=== PATIENT | female | born 1985 | race Caucasian/White ===

== ENCOUNTER → 2016-04-30 | Outpatient (CLI) | payer OTHER ==
[~2016-04-30] MED LIST: ALBUAER2 INH; CIPR-255 PO; ETONMIS VAGRING; IBUP-103 PO
[2016-04-30 15:59] LABS: THYROID STIMULATING HORMONE 1.27 uIu/ml (0.300-4.500)
== END | disposition home or self-care (01) ==
LOC: C.LAB1850 14:05
PROVIDERS: ATTEND Internal Medicine Endocrinology, Diabetes & Metabolism
DX: E03.9 Hypothyroidism, unspecified (principal)

== ENCOUNTER → 2016-08-31 | Outpatient (CLI) | payer OTHER ==
[~2016-08-31] MED LIST changes: +HYDR25CA PO; +LEVO125T72 PO; +OXYC1TAB3 PO
[2016-08-31 17:21] LABS: THYROID STIMULATING HORMONE 1.61 uIu/ml (0.300-4.500)
== END | disposition home or self-care (01) ==
LOC: C.LAB1850 15:19
PROVIDERS: ATTEND Physician Assistant
DX: E03.9 Hypothyroidism, unspecified (principal)

== ENCOUNTER → 2016-10-28 | Outpatient (CLI) | payer OTHER ==
[~2016-10-28] MED LIST changes: -HYDR25CA PO; -LEVO125T72 PO; -OXYC1TAB3 PO
== END | disposition home or self-care (01) ==
LOC: C.PAPS 09:24
PROVIDERS: ATTEND Obstetrics & Gynecology
DX: Z12.4 Encounter for screening for malignant neoplasm of cervix (principal)

== ENCOUNTER → 2016-11-12 | Outpatient (CLI) | payer OTHER ==
[2016-11-12 13:38] LABS: THYROID STIMULATING HORMONE 1.5 uIu/ml (0.300-4.500)
== END | disposition home or self-care (01) ==
LOC: C.LABPBG 07:21
PROVIDERS: ATTEND Internal Medicine Endocrinology, Diabetes & Metabolism
DX: Z00.00 Encounter for general adult medical examination without abnormal findings (principal); E03.9 Hypothyroidism, unspecified

== ENCOUNTER 2017-02-24 12:10 | Emergency (ER) | payer OTHER ==
[~2017-02-24] VITALS: Ht 162.6 cm; Wt 123.9 kg
[2017-02-24 12:21] VITALS: TEMP 36.7; Ht 162.6 cm; Wt 123.9 kg
[2017-02-24] MEDS ORDERED: HYDROmorphone INJ 1 MG/ML SYR IV ONE ×2 (13:30→16:30)
--- NOTE | 2017-02-24 13:44 | EMERGENCY ROOM VISIT NOTE ---
History First contact with patient: 13:07 Chief Complaint: PELVIC PAIN Stated Complaint: PUBIC/PELVIC PAIN History of Present Illness The patient is a 32 year old female who presents to the Emergency Room with complaints of left flank and left lower quadrant abdominal pain that started at 2 in the morning. The pain is described as a "gnawing sensation." The pain is constant. She has tried Tylenol and ibuprofen with no relief. She denies any urinary symptoms. Her last bowel movement was this morning and reported normal. She has had mild nausea associated with the pain. No vomiting. She denies any fever or chills. The patient has a history of ovarian cysts. She is not sexually active. She denies any vaginal discharge or bleeding. 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 (5) Sprain Rotator Cuff Surgical Problems: (1) [place] teeth extracted PCO S Status post cholecystectomy Family History Cancer Diabetes mellitus Heart disease Hypertension Seizures Social History Smoking Status: Current Every Day Smoker Marital Status: Housing Status: lives with significant other Occupation Status: employed Current/Historical Medications Scheduled Etonogestrel/Ethinyl Estradiol (Nuvaring), 1 EA VAGRING MONTHLY Hydroxyzine Pamoate (Vistaril), 1 CAP PO BID Ibuprofen Tab (Advil), 400 MG PO prn Levothyroxine Sodium (Synthroid), 1 TAB PO DAILY Scheduled PRN Oxycodone Ir (Roxicodone Ir), 1-2 TAB PO Q4H PRN for Pain Physical Exam Vital Signs Date Time Temp Pulse Resp B/P (MAP) Pulse Ox O2 Delivery O2 Flow Rate FiO2 02/24/17 18:15 61 16 130/66 96 02/24/17 16:33 67 16 120/75 97 Room Air 02/24/17 14:45 78 16 98 Room Air 02/24/17 14:18 75 18 127/75 99 Room Air 02/24/17 12:21 36.7 97 20 117/83 97 Room Air Physical Exam VITALS: Vitals are noted on the nurse's note and reviewed by myself. Vital signs stable. GENERAL: 32-year-old female, in no acute distress, nondiaphoretic, well- developed well-nourished. SKIN: The skin was without rashes, erythema, edema, or bruising. HEAD: Normocephalic atraumatic. MOUTH: Mucous membranes moist. NECK: Supple without nuchal rigidity. No lymphadenopathy. Cervical spine is nontender. No JVD. HEART: Regular rate and rhythm without murmurs gallops or rubs. LUNGS: Clear to auscultation bilaterally without wheezes, rales or rhonchi. No accessory muscle use. ABDOMEN: Positive bowel sounds x 4.Soft, mild tenderness to palpation in the left lower quadrant without organomegaly. No guarding or rebound tenderness. No CVA tenderness bilaterally. MUSCULOSKELETAL: No muscle atrophy, erythema, or edema noted. Strength 5/5 throughout. NEURO: Patient was alert and oriented to person place and time. Normal sensation to touch. No focal neurological deficits. Medical Decision & Procedures ER Provider Diagnostic Interpretation: CT abdomen and pelvis without contrast IMPRESSION: 1. Interval cholecystectomy. 2. No acute process of the abdomen or pelvis. 3. Normal appendix. 4. Stable left renal cyst The above report was generated using voice recognition software. It may contain grammatical, syntax or spelling errors. Electronically signed by: Axel Everett M.D. 02/24/2017 5:12 PM Dictated Date/Time: 02/24/2017 5:08 PM The status of this report is Signed. Draft = Not yet reviewed or approved by Radiologist. Signed = Reviewed and approved by Radiologist. <AttendingPhy></AttendingPhy> <FamilyPhy>RV. Holloway MD</ FamilyPhy> <PrimaryPhy>RV. Holloway MD</PrimaryPhy> <UnitNumber> [id number]</UnitNumber> <VisitNumber>[id number]</VisitNumber> <PatientName> YISEL MAURER</PatientName> <DateOfBirth>1985</DateOfBirth> < Location[facility]</Location> <ServiceDate>02/24/17</ServiceDate> <MNE>ESINDI</MNE> <OrderingPhy>Karin Weir PA-C</OrderingPhy> Pelvic ultrasound IMPRESSION: Limited examination secondary to poor sonographic penetration. Grossly normal left ovary without evidence of left ovarian torsion. Nonvisualization of right ovary. Electronically signed by: Az Johns M.D. 02/24/2017 4:03 PM Dictated Date/Time: 02/24/2017 4:00 PM The status of this report is Signed. Draft = Not yet reviewed or approved by Radiologist. Signed = Reviewed and approved by Radiologist. <AttendingPhy></AttendingPhy> <FamilyPhy>RV. Holloway MD</ FamilyPhy> <PrimaryPhy>RV. Holloway MD</PrimaryPhy> <UnitNumber> [id number]</UnitNumber> <VisitNumber>[id number]</VisitNumber> <PatientName> [facility] Enzo</PatientName> <DateOfBirth>1985</DateOfBirth> < Location>[facility]</Location> <ServiceDate>02/24/17</ServiceDate> <MNE>ESINDI</MNE> <OrderingPhy>Pan Hubbard M.D.</OrderingPhy> <OrderingPhyMNE>f rep ord dr cordova< /OrderingPhyMNE> <DictatingPhyMNE>f rep dict dr cordova</DictatingPhyMNE> <CCListMNE >f rep ct mne</CCListMNE> <AdmittingPhyMNE>f pt admit dr cordova</AdmittingPhyMNE> < AttendingPhyMNE KUB IMPRESSION: 1. No radiographic evidence of renal calculi. However, calcification in the left hemipelvis is noted. Distal left ureteral calculus cannot be excluded as no pelvic phlebolith is noted on prior CT from 2015. If there is clinical concern, further evaluation with noncontrast CT could be obtained. Electronically signed by: Az Johns M.D. 02/24/2017 2:50 PM Dictated Date/Time: 02/24/2017 2:33 PM The status of this report is Signed. Draft = Not yet reviewed or approved by Radiologist. Signed = Reviewed and approved by Radiologist. <AttendingPhy></AttendingPhy> <FamilyPhy>RV. Holloway MD</ FamilyPhy> <PrimaryPhy>RV. Holloway MD</PrimaryPhy> <UnitNumber> [id number]</UnitNumber> <VisitNumber>[id number]</VisitNumber> <PatientName> YISEL MAURER</PatientName> <DateOfBirth>1985</DateOfBirth> < Location>[facility]</Location> <ServiceDate>02/24/17</ServiceDate> <MNE>ESINDI</MNE> <OrderingPhy>Karin Weir PA-C</OrderingPhy> <OrderingPhyMNE>f rep ord dr cordova </OrderingPhyMNE> <DictatingPhyMNE>f rep dict dr cordova</DictatingPhyMNE> < CCListMNE>f rep ct mne</CCListMNE> <AdmittingPhyMNE>f pt admit dr cordova</ AdmittingPhyMNE> <AttendingPhyMNE>f pt attend dr cordova</AttendingPhyMNE> <ConsultingPhyMNE>f pt consult dr cordova</ConsultingPhyMNE> <FamilyPhyMNE>f pt fam dr cordova</FamilyPhyMNE> <OtherPhyMNE>f pt other dr cordova</OtherPhyMNE> < PrimaryPhyMNE>f pt prim care dr cordova</PrimaryPhyMNE> <ReferringPhyMNE>f pt referring dr cordova</ReferringPhyMNE> Laboratory Results 02/24/17 13:50 Red Blood Count 5.23, Mean Corpuscular Volume 79.7, Mean Corpuscular Hemoglobin 26.8, Mean Corpuscular Hemoglobin Concent 33.6, Mean Platelet Volume 8.6, Neutrophils (%) (Auto) 62.0, Lymphocytes (%) (Auto) 29.7, Monocytes (%) (Auto) 4.9, Eosinophils (%) (Auto) 2.8, Basophils (%) (Auto) 0.4, Neutrophils # (Auto) 7.41, Lymphocytes # (Auto) 3.55, Monocytes # (Auto) 0.58, Eosinophils # (Auto) 0.34, Basophils # (Auto) 0.05 02/24/17 13:50 Test 02/24/17 12:55 02/24/17 13:50 Urine Color YELLOW Urine Appearance CLEAR (CLEAR) Urine pH 5.0 (4.5-7.5) Urine Specific Thurmond 1.028 (1.000-1.030) Urine Protein NEG (NEG) Urine Glucose (UA) NEG (NEG) Urine Ketones NEG (NEG) Urine Occult Blood 3+ (NEG) Urine Nitrite NEG (NEG) Urine Bilirubin NEG (NEG) Urine Urobilinogen NEG (NEG) Urine Leukocyte Esterase NEG (NEG) Urine WBC (Auto) 1-5 /hpf (0-5) Urine RBC (Auto) >30 /hpf (0-4) Urine Hyaline Casts (Auto) 1-5 /lpf (0-5) Urine Epithelial Cells (Auto) 20-30 /lpf (0-5) Urine Bacteria (Auto) NEG (NEG) Urine Test NEG (NEG) White Blood Count 11.95 K/uL (4.8-10.8) Red Blood Count 5.23 M/uL (4.2-5.4) Hemoglobin 14.0 g/dL (12.0-16.0) Hematocrit 41.7 % (37-47) Mean Corpuscular Volume 79.7 fL (80-100) Mean Corpuscular Hemoglobin 26.8 pg (25-34) Mean Corpuscular Hemoglobin Concent 33.6 g/dl (32-36) Platelet Count 296 K/uL (130-400) Mean Platelet Volume 8.6 fL (7.4-10.4) Neutrophils (%) (Auto) 62.0 % Lymphocytes (%) (Auto) 29.7 % Monocytes (%) (Auto) 4.9 % Eosinophils (%) (Auto) 2.8 % Basophils (%) (Auto) 0.4 % Neutrophils # (Auto) 7.41 K/uL (1.4-6.5) Lymphocytes # (Auto) 3.55 K/uL (1.2-3.4) Monocytes # (Auto) 0.58 K/uL (0.11-0.59) Eosinophils # (Auto) 0.34 K/uL (0-0.5) Basophils # (Auto) 0.05 K/uL (0-0.2) RDW Standard Deviation 38.3 fL (36.4-46.3) RDW Coefficient of Variation 13.2 % (11.5-14.5) Immature Granulocyte % (Auto) 0.2 % Immature Granulocyte # (Auto) 0.02 K/uL (0.00-0.02) Anion Gap 3.0 mmol/L (3-11) Est Creatinine Clear Calc Drug Dose 162.6 ml/min Estimated GFR () 135.9 Estimated GFR (Non- 117.2 BUN/Creatinine Ratio 13.0 (10-20) Calcium Level 8.9 mg/dl (8.5-10.1) Total Bilirubin 0.2 mg/dl (0.2-1) Aspartate Amino Transf (AST/SGOT) 10 U/L (15-37) Alanine Aminotransferase (ALT/SGPT) 18 U/L (12-78) Alkaline Phosphatase 61 U/L (45-117) Total Protein 7.8 gm/dl (6.4-8.2) Albumin 3.2 gm/dl (3.4-5.0) Globulin 4.6 gm/dl (2.5-4.0) Albumin/Globulin Ratio 0.7 (0.9-2) Medications Administered Medications (Trade) Dose Ordered Sig/Nicanor Route Start Time Stop Time Status Last Admin Dose Admin Hydromorphone HCl (Dilaudid Inj) 1 mg ONE ONCE IV 02/24/17 13:30 02/24/17 13:31 DC 02/24/17 14:13 1 MG Hydromorphone HCl (Dilaudid Inj) 1 mg ONE ONCE IV 02/24/17 16:30 02/24/17 16:31 DC 02/24/17 16:32 1 MG Ketorolac Tromethamine (Toradol Inj) 30 mg NOW STAT IV 02/24/17 16:22 02/24/17 16:23 DC 02/24/17 16:32 30 MG Oxycodone HCl (Roxicodone Immediate Rel 5MG Home Pack) 1 homepack UD ONCE PO 02/24/17 17:45 02/24/17 17:46 DC 02/24/17 18:06 1 HOMEPACK ED Course Patient was seen and examined Vital signs including blood pressure were reviewed medications list was verified with patient Labs were obtained, and a saline lock was established The patient was medicated with Dilaudid. Imaging was performed and reviewed The patient was reassessed. Her pain was worse after the ultrasound. She was given an additional dose of Dilaudid. CT was performed and reviewed. The findings were discussed with the patient who is resting comfortably in bed. We discussed the results of her workup. She voiced understanding. The case was also discussed with my supervising physician She was given a home pack of oxycodone. I reviewed discharge instructions the patient. They voiced understanding and had no further questions. Medical Decision DIFFERENTIAL DIAGNOSIS: Gastroenteritis, Hepatitis, cholecystitis, cholangitis, biliary colic, pancreatitis, appendicitis, inguinal hernia, nephrolithiasis, inflammatory bowel disease, mesenteric adenitis, peptic ulcer disease, GERD, gastritis, pancreatitis,, bowel obstruction, splenic infarct, diverticulitis, mesenteric ischemia, metabolic, peritonitis, ovarian cyst, ovarian torsion, ectopic , PID, endometriosis, uterine fibroids This patient is a 32-year-old female that presents to emergency department with complaints of left flank pain and left lower abdominal pain. On exam, she was nontoxic in appearance. She did not have any significant CVA tenderness. She was minimally tender in the left lower quadrant. I ordered an ultrasound, which did not show any ovarian cysts. I reviewed her labs. She had 3+ blood in her urine. I ordered a CT to evaluate her for a kidney stone. This was also negative. Her renal function is intact. There is no significant leukocytosis. The etiology of her pain is unclear. I feel that she is stable to be discharged home with close follow-up. She was given a short course of narcotic pain medication. 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 She agrees to return to the emergency department with any new or concerning symptoms. This chart was completed in part utilizing [employer] Speech Voice Recognition software. Attempts were made to minimize the grammatical errors, random word insertions, pronoun errors and incomplete sentences. Any formal questions or concerns about the content, text or information contained within the body of this dictation should be directly addressed to the provider for clarification. Medication Reconcilliation Current Medication List: was personally reviewed by me Blood Pressure Screening Patient's blood pressure: Normal blood pressure Impression Primary Impression: Abdominal pain Departure Information Dispostion Home / Self-Care Condition GOOD Prescriptions Oxycodone Ir (Roxicodone Ir) 5 Mg Tab 1-2 TAB PO Q4H Y for Pain, #15 TAB For Initial Treatment Prov: Karin Weir PA-C 02/24/17 Referrals RV. Holloway MD (PCP) Patient Instructions My [facility] Additional Instructions You were evaluated in the emergency department for abdominal pain and flank pain. Ibuprofen 800 mg and/or Tylenol 1000 mg every 8 hours. You may also alternate these medications for more effective pain relief: Ibuprofen --4 HRS--> Tylenol --4 HRS--> ibuprofen --4 HRS--> Tylenol .... Oxycodone for severe pain Oxycodone Immediate Release (OxyIR) 5mg: Take 1-2 pills every four hours for pain. Avoid alcohol, operating machinery or dangerous equipment, working on ladders or roofs, DRIVING, or situations where being under the influence may be dangerous. It is recommended to use an [id number] stool softener such as Colace, 100mg twice daily while taking this medication to avoid constipation. Please follow-up with your primary care physician within the next 48 hours for recheck Return to the emergency department if you have any of the following symptoms: -Fever of 103F or greater -Persistent vomiting - Persistent diarrhea -Lethargy -Chest pain -Shortness of breath -Worsening pain
[2017-02-24 13:50] LABS: URINE APPEARANCE CLEAR (CLEAR); URINE BILIRUBIN NEG (NEG); URINE COLOR YELLOW; URINE EPITHELIAL CELL AUTO 20-30 /lpf (0-5); URINE NITRITE NEG (NEG); URINE SPECIFIC GRAVITY 1.028 (1.000-1.030); UROBILINOGEN NEG (NEG)
[2017-02-24 13:51] LABS: MANUAL MICROSCOPIC REQUIRED? NO; REVIEW REQ? NO
[2017-02-24 13:56] LABS: PREG INTERNAL NEGATIVE QC NEG CLEAR BACKGROUND; PREG INTERNAL POSITIVE QC POS CONTROL LINE
[2017-02-24] MEDS ORDERED: HYDR25CA PO (14:04)
[2017-02-24] MEDS ORDERED: LEVO125T72 PO (14:04)
[2017-02-24 14:08] LABS: BASO % 0.4 %; BASO ABS # 0.05 K/uL (0-0.2); COMPLETE YES; EOS % 2.8 %; HEMATOCRIT 41.7 % (37-47); IG% 0.2 %; LYMPH % 29.7 %; LYMPH ABS # 3.55 K/uL (1.2-3.4); MEAN CELL VOLUME 79.7 fL (80-100); MEAN CORPUSCULAR HEMOGLOBIN 26.8 pg (25-34); MEAN CORPUSCULAR HGB CONC 33.6 g/dl (32-36); MEAN PLATELET VOLUME 8.6 fL (7.4-10.4); MONO % 4.9 %; PLATELET COUNT 296 K/uL (130-400); RED BLOOD COUNT 5.23 M/uL (4.2-5.4); WHITE BLOOD COUNT 11.95 K/uL (4.8-10.8)
[2017-02-24 14:26] LABS: CALCIUM 8.9 mg/dl (8.5-10.1); CREATININE 0.64 mg/dl (0.60-1.20); POTASSIUM 3.5 mmol/L (3.5-5.1)
[2017-02-24 14:28] LABS: ALB/GLOB RATIO 0.7 (0.9-2)
--- NOTE | 2017-02-24 14:51 | DIAGNOSTIC IMAGING REPORT ---
KUB CLINICAL HISTORY: 32 years-old Female presenting with L flank pain LLQ pain ? stone, pelvic pain. TECHNIQUE: Single supine view of the abdomen was obtained. COMPARISON: CT from 2015. FINDINGS: Cholecystectomy clips. Single pelvic surgical clip also noted. No gross pneumoperitoneum. Nonobstructive bowel gas pattern. No calcifications to suggest nephrolithiasis. Calcification in the left hemipelvis may represent a phlebolith though no phlebolith was noted in 2015. Osseous structures normal. Lung bases clear. IMPRESSION: 1. No radiographic evidence of renal calculi. However, calcification in the left hemipelvis is noted. Distal left ureteral calculus cannot be excluded as no pelvic phlebolith is noted on prior CT from 2015. If there is clinical concern, further evaluation with noncontrast CT could be obtained. Electronically signed by: Az Johns M.D. 02/24/2017 2:50 PM Dictated Date/Time: 02/24/2017 2:33 PM
--- NOTE | 2017-02-24 16:04 | DIAGNOSTIC IMAGING REPORT ---
TRANSVAG-FEMALE PELVIS, PELVIC COMPLETE NON OB CLINICAL HISTORY: 32 years-old Female presenting with LLQ pain, last menstrual period 02/10/2017. TECHNIQUE: Real-time grayscale and color and spectral Doppler ultrasound imaging of the pelvis was performed first using a transabdominal probe and subsequently transvaginal for better characterization. COMPARISON: CT from 03/08/2015. FINDINGS: The examination was limited by patient body habitus. Uterus: Normal. Anteverted. The uterus measures 6.5 x 2.6 x 3.5 cm. Endometrial stripe measures 6 mm in thickness. Endometrium normal-appearing. Cervix contains nabothian cysts. Right adnexa: Right ovary not visualized. Left adnexa: Left ovary grossly normal but poorly visualized. Left ovary measures 1.9 x 1.9 x 1.0 cm. Normal arterial and venous waveforms within the ovarian parenchyma. Other: No free fluid. IMPRESSION: Limited examination secondary to poor sonographic penetration. Grossly normal left ovary without evidence of left ovarian torsion. Nonvisualization of right ovary. Electronically signed by: Az Johns M.D. 02/24/2017 4:03 PM Dictated Date/Time: 02/24/2017 4:00 PM
[2017-02-24] MEDS ORDERED: KETOROLAC TROMETHAMINE 30 MG/ML VIAL IV STA (16:22)
--- NOTE | 2017-02-24 17:13 | DIAGNOSTIC IMAGING REPORT ---
ABD/PELVIS WITHOUT FOR STONE CT DOSE: 1701.36 mGy.cm HISTORY: Flank pain LLQ flank pain ? stone also hx diverticula TECHNIQUE: Multiaxial CT images of the abdomen and pelvis were performed without the use of intravenous and oral contrast according to the standard department stone protocol. A dose lowering technique was utilized adhering to the principles of ALARA. COMPARISON STUDY: 03/08/2015 FINDINGS: Lung bases are clear. Interval cholecystectomy. Liver spleen and pancreas appear unremarkable. Left renal cyst unchanged in the prior exam. Kidneys are considered negative for an obstructing urinary tract calculus. Uterus is anteflexed. Bowel pattern is nonobstructive. No evidence for diverticulitis. The appendix is normal. IMPRESSION: 1. Interval cholecystectomy. 2. No acute process of the abdomen or pelvis. 3. Normal appendix. 4. Stable left renal cyst The above report was generated using voice recognition software. It may contain grammatical, syntax or spelling errors. Electronically signed by: Axel Everett M.D. 02/24/2017 5:12 PM Dictated Date/Time: 02/24/2017 5:08 PM
[2017-02-24] MEDS ORDERED: OXYC1TAB3 PO (17:39)
[2017-02-24] MEDS ORDERED: OXYCODONE IR HOME PACK PO ONE (17:45)
[2017-02-24 18:15] VITALS: BP 130/66; PULSE 61; O2SAT 96
== END 2017-02-24 18:12 | disposition home or self-care (01) ==
LOC: C.EDB 12:12
DX: R10.32 Left lower quadrant pain (principal); K21.9 Gastro-esophageal reflux disease without esophagitis; Z90.49 Acquired absence of other specified parts of digestive tract; Z80.9 Family history of malignant neoplasm, unspecified; Z83.3 Family history of diabetes mellitus; Z82.49 Family history of ischemic heart disease and other diseases of the circulatory system; Z82.0 Family history of epilepsy and other diseases of the nervous system; F17.210 Nicotine dependence, cigarettes, uncomplicated; Z79.899 Other long term (current) drug therapy

== ENCOUNTER → 2017-05-18 | Outpatient (CLI) | payer OTHER ==
[~2017-05-18] MED LIST changes: -ALBUAER2 INH; -CIPR-255 PO; +HYDR25CA PO; +LEVO125T72 PO; +OXYC1TAB3 PO
== END | disposition home or self-care (01) ==
LOC: C.LABPBG 11:22
PROVIDERS: ATTEND Physician Assistant
DX: E03.9 Hypothyroidism, unspecified (principal)

== ENCOUNTER → 2017-07-22 | Outpatient (CLI) | payer OTHER | END | disposition home or self-care (01) | LOC: C.LAB1850 08:25 | PROVIDERS: ATTEND Physician Assistant | DX: R19.7 Diarrhea, unspecified (principal) ==

== ENCOUNTER → 2017-08-04 | Outpatient (CLI) | payer OTHER | END | disposition home or self-care (01) | LOC: C.LAB1850 16:06 | PROVIDERS: ATTEND Physician Assistant | DX: E03.9 Hypothyroidism, unspecified (principal) ==

== ENCOUNTER → 2017-11-02 | Outpatient (CLI) | payer OTHER ==
[~2017-11-02] MED LIST changes: -OXYC1TAB3 PO
[2017-11-02 13:28] LABS: BLOOD UREA NITROGEN 13 mg/dl (7-18); CALCIUM 9.1 mg/dl (8.5-10.1); CARBON DIOXIDE 25 mmol/L (21-32); CHOLESTEROL 144 mg/dl (0-200); CREATININE 0.65 mg/dl (0.60-1.20); GLUCOSE,FASTING 89 mg/dl (70-99); LDL CHOLESTEROL CALCULATED 73 mg/dl; SODIUM 139 mmol/L (136-145)
== END | disposition home or self-care (01) ==
LOC: C.LABPBG 08:13
PROVIDERS: ATTEND Internal Medicine
DX: Z00.00 Encounter for general adult medical examination without abnormal findings (principal)